=== PATIENT | male | born 1965 | race Caucasian/White ===

== ENCOUNTER → 2016-07-14 | Outpatient (CLI) | payer OTHER ==
[~2016-07-14] MED LIST: DULE100A INH; IBUP800T23 PO; LIPI40TA PO; PENL8SOL TOPICAL; ROBA500T PO
[2016-07-14 13:54] LABS: HEMATOCRIT 47.2 % (39.0-51.0); MEAN CELL VOLUME 91.5 FL (80.0-100.0); MEAN CORPUSCULAR HEMOGLOBIN 31.2 PG (27.0-34.0); MEAN CORPUSCULAR HGB CONC 34.1 % (32.0-36.0); PLATELET COUNT 184 TH/MM3 (150-450); RED BLOOD COUNT 5.15 MIL/MM3 (4.50-5.90); RED CELL DISTRIBUTION WIDTH 13.9 % (11.6-17.2); REVIEW FLAG FINAL; WHITE BLOOD COUNT 5.9 TH/MM3 (4.0-11.0)
[2016-07-14 14:22] LABS: ALT (GPT) 53 U/L (12-78); ANION GAP 7 MEQ/L (5-15); AST (GOT) 31 U/L (15-37); BICARBONATE 27.9 MEQ/L (21.0-32.0); BLOOD UREA NITROGEN 9 MG/DL (7-18); CHLORIDE 103 MEQ/L (98-107); GLOMERULAR FILTRATION RATE 61 ML/MIN (>89); GLUCOSE,FASTING 80 MG/DL (74-99); POTASSIUM 4.3 MEQ/L (3.5-5.1); SODIUM (NA) 138 MEQ/L (136-145)
[2016-07-14 14:28] LABS: ALKALINE PHOSPHATASE 63 U/L (45-117); HDL CHOLESTEROL 29.7 MG/DL (40.0-60.0); LDL CHOLESTEROL 139 MG/DL (0-99); TOTAL BILIRUBIN ADULT 0.6 MG/DL (0.2-1.0)
== END ==
LOC: CLAB 13:31
PROVIDERS: ATTEND Family Medicine
DX: B19.20 Unspecified viral hepatitis C without hepatic coma (principal); E78.5 Hyperlipidemia, unspecified; H26.9 Unspecified cataract; M25.511 Pain in right shoulder; Z59.0 Homelessness; Z72.0 Tobacco use
CPT/HCPCS: 36415; 80053; 80061; 84443; 85027

== ENCOUNTER → 2017-01-15 | Outpatient (CLI) | payer OTHER ==
[~2017-01-15] MED LIST changes: +ASPI-110 PO; +BACT800T5 PO; +CALCCAP PO; +CEPH-460 PO; +CITA20TA4 PO; +QUET5TAB PO
[2017-01-15 13:15] LABS: HDL CHOLESTEROL 31.2 MG/DL (40.0-60.0)
== END ==
LOC: CLAB 11:56
PROVIDERS: ATTEND Family Medicine
DX: E78.5 Hyperlipidemia, unspecified (principal)
CPT/HCPCS: 36415; 80061

== ENCOUNTER 2017-01-20 12:24 | Emergency (ER) | payer OTHER ==
[~2017-01-20] VITALS: Ht 185.4 cm; Wt 87.0 kg
[~2017-01-20 12:24] MED LIST changes: -BACT800T5 PO; -CEPH-460 PO; -LIPI40TA PO
[2017-01-20 12:25] VITALS: BP 126/86; PULSE 81; RESP 18; TEMP 98.1; O2SAT 98
[2017-01-20] MEDS ORDERED: CEPH-460 PO (12:56)
[2017-01-20] MEDS ORDERED: BACT800T5 PO (12:56)
--- NOTE | 2017-01-20 12:56 | PD ---
HPI Chief Complaint: Skin Problem Time Seen by Provider: 12:31 Travel History International Travel<30 days: No Contact w/Intl Traveler<30days: No Traveled to known affect area: No History of Present Illness HPI 51-year-old male with history of depression and hepatitis C presents to the emergency department for evaluation of erythema involving edema to the right distal lower extremity. Patient states this started approximately 2 days ago. He is uncertain if he was bitten by an insect or sustained a scratch or cut. The redness has extended and is mildly painful. He states it makes him aware. It does not radiate anywhere. Reports a "high fever" yesterday but no fever today. Denies any alterations in sensation. Limitations range of motion. No history of trauma. Patient states he has had cellulitis in the past and this is very similar to that. He has no other symptoms to report. PFSH Past Medical History Depression: Yes Hepatitis: Yes Hypertension: Yes Social History Alcohol Use: No Tobacco Use: Yes (10 cig/daily) Substance Use: No Allergies-Medications (Allergen,Severity, Reaction): Coded Allergies: penicillin G (Unverified Allergy, Severe, 01/20/17) Reported Meds & Prescriptions Reported Meds & Active Scripts Active Ibuprofen 800 Mg Tab 800 Mg PO Q8H PRN Robaxin (Methocarbamol) 500 Mg Tab 500 Mg PO TID Penlac (Nail Lacquer) Topical (Ciclopirox (Nail Lacquer) Topical) 8% Soln 1 Applic TOPICAL HS Aspirin 81 (Aspirin) 81 Mg Tabdr 81 Mg PO DAILY Calcium Plus Vitamin D3 (Calcium Carbonate-Cholecalciferol) 600-500 Mg-Unit Cap 1 Cap PO DAILY Quetiapine (Quetiapine Fumarate) 50 Mg Tab 50 Mg PO HS Citalopram (Citalopram Hydrobromide) 20 Mg Tab 20 Mg PO DAILY Reported Dulera 120 Act Inh (Mometasone-Formoterol 120 Act Inh) 100-5 Mcg/Act Inh 2 Puff INH DAILY Review of Systems Except as stated in HPI: all other systems reviewed are Neg Physical Exam Narrative GENERAL: Well-nourished, well-developed male patient with bizarre affect, in no acute distress. SKIN: Focused skin assessment warm/dry. 12 cm diameter area of erythema on the medial aspect of the distal right lower extremity. There is no induration or fluctuation. It is warm to touch. I do not see any wound. HEAD: Normocephalic. Atraumatic EYES: No scleral icterus. No injection or drainage. NECK: Supple, trachea midline. No JVD or lymphadenopathy. CARDIOVASCULAR: Regular rate and rhythm without murmurs, gallops, or rubs. RESPIRATORY: Breath sounds equal bilaterally. No accessory muscle use. MUSCULOSKELETAL: No cyanosis. Trace edema of the right distal lower extremity surrounding the area of erythema however this is not the entire lower extremity. Distal pulses are palpable. Cap refill within normal limits. BACK: Nontender without obvious deformity. No CVA tenderness. Data Data Last Documented VS Vital Signs Date Time Temp Pulse Resp B/P (MAP) Pulse Ox O2 Delivery O2 Flow Rate FiO2 01/20/17 12:25 98.1 81 18 126/86 (99) 98 Room Air Orders Orders Ed Discharge Order (01/20/17 12:47) MDM Medical Decision Making Medical Screen Exam Complete: Yes Emergency Medical Condition: Yes Medical Record Reviewed: Yes Differential Diagnosis Cellulitis versus psoriasis versus contact dermatitis versus folliculitis Narrative Course 51-year-old male presents to emergency department for evaluation of erythema to the right distal lower extremity. Physical exam is consistent with a cellulitis. Patient was treated with oral antibiotics and encouraged follow-up with primary care provider. He agrees to return immediately with any acute worsening symptoms. Diagnosis Primary Impression: Cellulitis Qualified Codes: L03.115 - Cellulitis of right lower limb Referrals: Primary Care Physician Patient Instructions: Cellulitis (ED), General Instructions Departure Forms: Tests/Procedures Additional Instructions: Elevate the affected extremity to reduce pain and swelling Follow-up with a primary care provider Return immediately to the emergency department with any acute worsening of symptoms Med/Other Pt SpecificInfo: Prescription(s) given Scripts Cephalexin (Keflex) 500 Mg Cap 500 MG PO Q6H for Infection for 5 Days, #20 CAP 0 Refills Prov: Le Locke 01/20/17 Sulfamethoxazole-Trimethoprim (Bactrim DS) 800-160 Mg Tab 1 TAB PO BID for Infection, #20 TAB 0 Refills Prov: Le Locke 01/20/17 Disposition: 01 DISCHARGE HOME Condition: Stable Le Locke Jan 20, 2017 12:56
== END 2017-01-20 13:16 | disposition home or self-care (01) ==
LOC: NEPK 12:24
DX: L03.115 Cellulitis of right lower limb (principal); B19.20 Unspecified viral hepatitis C without hepatic coma; F32.9 Major depressive disorder, single episode, unspecified; I10 Essential (primary) hypertension; F17.210 Nicotine dependence, cigarettes, uncomplicated
CPT/HCPCS: 99284